=== PATIENT | female | born 2000 | race Caucasian/White ===

== ENCOUNTER 2021-11-13 07:46 | Emergency (ER) | payer MEDICAID, SELFPAY ==
[2021-11-13 07:49] VITALS: BP 133/69; PULSE 121; RESP 16; TEMP 37.1; O2SAT 99; BMI 19.5
[2021-11-13 07:52] VITALS: BP 133/69; PULSE 121; RESP 16; TEMP 37.1; O2SAT 99
[2021-11-13 08:21] LABS: Absolute Lymphocyte Count 2.66 X10^3/uL (0.83-4.51); Absolute Neutrophil Count 7.4 X10^3/uL (2.0-7.7); Basophil# 0.03 X10^3/uL; Basophil% 0.3 % (0-1); Eosinophil# 0.02 X10^3/uL; Eosinophils% 0.2 % (0-5); Hematocrit 28.1 % (37-47); Hemoglobin 7.9 g/dL (12.0-15.0); Lymphocyte # 2.66 X10^3/ul (0.83-4.51); Lymphocyte % 22.7 % (19-41); Mean Corp Hgb Conc 28.1 g/dL (32-36); Mean Corpuscular Hgb 20.3 pg (27.0-32.0); Mean Corpuscular Volume 72.1 fL (81-99); Mean Platelet Vol. 9.4 fl (6.2-12.0); Monocyte# 1.56 X10^3/uL; Monocyte% 13.3 % (0-10); NRBC Flagged by Analyzer 0 % (0-5); Neutrophil # 7.39 X10^3/uL (2.7-7.7); Neutrophil % 63.2 % (47-70); POSITIVE DIFFERENTIAL YES; Platelet Count 409 K/mm3 (150-450); RBC Distribution Width CV 16.2 % (11.6-14.6); RBC Distribution Width SD 40.9 fl (35.1-43.9); White Blood Count 11.7 K/mm3 (4.4-11.0)
--- NOTE | 2021-11-13 08:21 | EX.ED.DYSGE1 ---
HPI History of Present Illness Chief Complaint: Flank Pain Informant: patient Narrative Narrative: Patient presents with left flank soreness and a fever. Patient states she has been sore on the left flank for a few days. She works as an [employer] and thought she had just hurt herself. It is sore when she moves or twists. She denies any urinary symptoms at any time. She came in today because last night and then this morning she had a fever of about 102. She is not having coughing. No rashes. No nausea vomiting. She has some soft stools but does have ulcerative colitis. She is currently on Remicade. She had a flare of ulcerative colitis so she is on prednisone for about a week. She is on 25 a day she believes right now. But she states her symptoms of ulcerative colitis are improving. Her pain is in the left flank and radiates to the side. Its not in the anterior abdomen. She does not feel as though this is her ulcerative colitis. Tylenol made her temperature better. Motion or palpation of the back makes that worse. [facility] Medical History (Updated 11/13/21 @ 09:[address] Vik Friedman MD) Ulcerative colitis Home Medications cephalexin 500 mg capsule 500 mg PO Q6 #40 caps 11/13/21 [Rx Last Taken Unknown] ondansetron 4 mg disintegrating tablet 4 mg PO Q8H PRN nausea and vomiting #10 tabs 11/13/21 [Rx Last Taken Unknown] Allergy/AdvReac Type Severity Reaction Status Date / Time No Known Allergies Allergy Verified 11/13/21 07:52 Social History Smoking Status: Current every day smoker tobacco type: e-cigarettes ROS ROS ED Constitutional Constitutional ED: Reports fever(s) Eyes Eyes: Denies change in vision ENT ENT ED: Denies ear pain, rhinorrhea or sore throat Cardiovascular Cardiovascular: Denies chest pain, palpitations or paroxysmal nocturnal dyspnea Respiratory/Chest Respiratory/Chest: Denies cough, dyspnea, paroxysmal nocturnal dyspnea or sputum Gastrointestinal Gastrointestinal: Reports diarrhea and other Details: Mildly soft stool. Not having significant bloody diarrhea at this time though. ; Denies abdominal pain, constipation, melena, nausea or vomiting Genitourinary Genitourinary ED: Reports other Details: Last menstrual cycle was just over 2 weeks ago and normal timing. ; Denies urinary frequency Musculoskeletal Musculoskeletal: Reports back pain; Denies arthralgias, myalgias or neck pain Integumentary Denies abscess, Abrasions or rash Neurologic Neurologic: Denies paresthesias or weakness Endocrine Endocrinology: Denies polydipsia or polyuria Hematologic/Lymphatic Hematologic/Lymphatic: Denies easy bleeding or easy bruising Allergic/Immunologic Allergic/Immunologic ED: Denies urticaria EXAM Physical Exam Const Vital Signs: 11/13/21 07:49 11/13/21 07:52 11/13/21 08:58 Temperature 98.8 F 98.8 F 99.1 F Temperature Source Oral Oral Temporal Pulse Rate 121 H 121 H Respiratory Rate 16 16 Blood Pressure 133/69 H 133/69 H Blood Pressure Mean 90 Pulse Ox 99 99 Oxygen Delivery Method Room Air Room Air Positive well nourished and well developed General Appearance ED: well developed; Negative for pallor HEENT Reports moist mucous membranes Eyes PERRL and EOMs intact bilaterally General Eye ED: Negative for pale conjunctiva or scleral icterus Neck no lymphadenopathy and supple General: Negative for tenderness Chest Wall inspection of chest normal and palpation of chest normal Resp normal respiratory effort and clear to auscultation bilaterally Effort and Inspection: Negative for pain with movement Auscultation: Negative for rales, rhonchi, wheezes or diminished lung sounds Cardio regular rhythm; Negative for regular rate Rate: tachycardic GI normal to inspection, nondistended, normoactive bowel sounds, non-tender and non-distended GI Narrative: Anterior abdominal exam is quite benign. There is no rash. She is thin. There is no tenderness. No mass. No rebound or guarding. No suprapubic tenderness. Auscultation: normoactive bowel sounds Back/Spine Back/Spine Narrative: Patient has left-sided paraspinal tenderness. This is not just isolated to the CVA area. It is tender with motion twisting or even soft palpation. However, I do not get signs of percussion tenderness. She has no right-sided tenderness. I can tap on each of the spinous processes and this does not seem to bother her at all. It all seems to be paraspinal. Extremity normal to inspection General Extremety ED: Negative for edema or tenderness General Extremity: Negative for edema Neuro oriented x3 and no sensory deficits noted Neuro Narrative: Normal strength sensation of lower extremities. She has no pain going down her back buttock or legs. She has normal gait and balance. Sensorium / Orientation: alert Psych mental status grossly normal Skin no rashes or lesions noted Skin Narrative: No vesicles noted General Skin Exam: Negative for jaundice or pallor MDM MDM MDM Narrative Medical decision making narrative: Patient's blood work do show mild elevation of white count. This is consistent with infection but also consistent with being on prednisone currently. She is also quite anemic at 7.9. By looking at her indices, this is most likely longstanding iron deficient anemia. She is not having symptoms of anemia. Her heart rate is a bit quick here though. Electrolytes are unremarkable. is negative. Urine does show 25-50 whites with elevated leukocyte esterase and cloudy urine. There is a small number of squamous cell. There are 1+ bacteria. Considering she has this urinary finding fevers and left flank pain I would treat this as pyelonephritis. I have sent off a culture. Patient does have history of anemia. She has been having an off-and-on flare since July. They tapered her off of prednisone and then they bumped it up again. No gross blood in the stool but I am suspicious she has been having intermittent bleeding from her CBC findings. She states she cannot tolerate iron at all. She is not vegetarian. I have encouraged multivitamin with a small amount of iron. She can also increase red meats. She should have this hemoglobin level checked. If she develops any other areas of pain she should return. I do not think this represents a epidural abscess discitis etc. Her pain is clearly left-sided only. Lab Data Attestation: I reviewed the patient's lab results. Labs: Laboratory Results - last 24 hr 11/13/21 11/13/21 11/13/21 08:10 08:10 08:10 WBC 11.7 H RBC 3.90 L Hgb 7.9 L Hct 28.1 L MCV 72.1 L MCH 20.3 L MCHC 28.1 L RDW Std Deviation 40.9 RDW Coeff of [place]ito 16.2 H Plt Count 409 MPV 9.4 Immature Gran % (Auto) 0.300 Neut % (Auto) 63.2 Lymph % (Auto) 22.7 [place] % (Auto) 13.3 H Eos % (Auto) 0.2 Baso % (Auto) 0.3 Absolute Neuts (auto) 7.4 Absolute Lymphs (auto) 2.66 Nucleated RBC % 0 Differential Comment SCANNED Diff Path Review May foll Sodium 136 Potassium 3.5 Chloride 105 Carbon Dioxide 23.0 Anion Gap 8 BUN 9 Creatinine 0.93 Estim Creat Clear Calc 95.93 Est GFR (MDRD) Af Amer 97 Est GFR (MDRD) Non-Af 80 BUN/Creatinine Ratio 9.6 L Glucose 110 H Calcium 8.6 Serum , Qual NEGATIVE Urine Color Urine Clarity Urine pH Ur Specific [place] Urine Protein Urine Glucose (UA) Urine Ketones Urine Occult Blood Urine Nitrite Urine Bilirubin Urine Urobilinogen Ur Leukocyte Esterase Urine RBC Urine WBC Ur Squamous Epith Cells Urine Bacteria Urine Mucus 11/13/21 08:18 WBC RBC Hgb Hct MCV MCH MCHC RDW Std Deviation RDW Coeff of [place] Plt Count MPV Immature Gran % (Auto) Neut % (Auto) Lymph % (Auto) [place] % (Auto) Eos % (Auto) Baso % (Auto) Absolute Neuts (auto) Absolute Lymphs (auto) Nucleated RBC % Differential Comment Diff Path Review Sodium Potassium Chloride Carbon Dioxide Anion Gap BUN Creatinine Estim Creat Clear Calc Est GFR (MDRD) Af Amer Est GFR (MDRD) Non-Af BUN/Creatinine Ratio Glucose Calcium Serum , Qual Urine Color Yellow Urine Clarity Sl. Cloudy Urine pH 6.0 Ur Specific [place] 1.015 Urine Protein 30 H Urine Glucose (UA) Normal Urine Ketones Negative Urine Occult Blood 10 H Urine Nitrite Negative Urine Bilirubin Negative Urine Urobilinogen Normal Ur Leukocyte Esterase 500 H Urine RBC 0-5 SEEN Urine WBC 25-50 SEEN Ur Squamous Epith Cells 5-10 SEEN Urine Bacteria 1+ Urine Mucus 0 SEEN Discharge Plan Triage Chief Complaint: Flank Pain ED Provider: Vik Friedman Dx/Rx/DC Orders Clinical Impression: Pyelonephritis Instructions: ED Pyelonephritis, Female (Adult) Prescriptions: New cephalexin [cephalexin] 500 mg capsule 500 mg PO Q6 Qty: 40 0RF ondansetron 4 mg tablet,disintegrating 4 mg PO Q8H PRN (Reason: nausea and vomiting) Qty: 10 0RF Primary Care Provider: Care Physician,No Primary Referrals: Flores Hernandez MD [STAFF PHYSICIAN] - 3-5 Days Care Physician,No Primary [Primary Care Provider] - Activity Restrictions/Additional Instructions: See your vp construction about following blood counts. Disposition Disposition: Home, Self Care
[2021-11-13 08:23] LABS: Differential Indicated SCAN CRITERIA MET
[2021-11-13 08:27] LABS: Internal QC Validated? YES +Cl - CLEAR BKGD; Pregnancy, Serum, hCG Quali. NEGATIVE Negative
[2021-11-13 08:31] LABS: Mucous, Urine 0 SEEN /hpf (<or=2+)
[2021-11-13 08:32] LABS: Color, Urine Yellow (Yellow); Glucose, Dipstick Normal (Normal); Ketone-Dipstick Negative (Negative); Leukocyte Esterase-Dipstick 500 /ul (Negative); Nitrite-Dipstick Negative (Negative); Occult Blood-Urine 10 /ul (Negative); Protein-Dipstick 30 mg/dl (Negative); Specific Gravity, Urine 1.015 (1.002-1.030); Urine Bilirubin Dipstick Negative (Negative); Urine Clarity Sl. Cloudy (Clear); Urine Urobilinogen Normal (Normal)
[2021-11-13 08:33] LABS: Anion Gap 8 (5-15); BUN 9 mg/dL (7-18); BUN/Creat Ratio 9.6 RATIO (10-20); Calcium,Total 8.6 mg/dL (8.5-10.1); Chloride 105 mmol/L (98-107); Creatinine, Serum 0.93 mg/dL (0.55-1.02); EST Glomerular Filtration Rate 80 mL/min (>60); Est Glom Filt Rate - Afr Amer 97 mL/min (>60); Estimated Creatinine Clearance 95.93 ml/min; Glucose 110 mg/dL (74-106); Potassium 3.5 mmol/L (3.5-5.1); Sodium Level 136 mmol/L (136-145)
[2021-11-13] MEDS: 0.9% Normal Saline 1,000 ML 1000 ML IV (08:38)
[2021-11-13 08:39] LABS: Bacteria 1+ /hpf (None Seen); Red Blood Cells-Urine 0-5 SEEN /hpf (0-5); Squamous Epithelial Cells - UA 5-10 SEEN /hpf (5-10); White Blood Cells 25-50 SEEN /hpf (0-5)
[2021-11-13 08:42] LABS: Differential Comment SCANNED
[2021-11-13 08:58] VITALS: TEMP 37.3
[2021-11-13] MEDS: Ondansetron 4 MG/2 ML Vial IV (09:07)
[2021-11-13] MEDS: Morphine 4 MG/ML Syringe IV (09:07)
[2021-11-13] MEDS: Ceftriaxone 1 GM/50 ML BAG IV (10:08)
[2021-11-13 11:11] VITALS: BP 120/68; PULSE 70; RESP 16; O2SAT 99
[2021-11-16 11:57] LABS: Pathologist Review Reviewed
== END 2021-11-13 11:13 | disposition home or self-care (01) ==
PROVIDERS: Emergency Provider Emergency Medicine; Visit Provider Emergency Medicine
DX: N12 Tubulo-interstitial nephritis, not specified as acute or chronic (principal); K51.90 Ulcerative colitis, unspecified, without complications; F17.290 Nicotine dependence, other tobacco product, uncomplicated; Z79.899 Other long term (current) drug therapy
CPT/HCPCS: 80048; 81001; 84703; 85025; 87077; 87086; 87088; 87186; 87811; 96361; 96365; 96375; 99283; J7030; A4216; J2405

== ENCOUNTER 2022-05-20 09:55 | Emergency (ER) | payer MEDICAID, SELFPAY ==
[2022-05-20 09:55] VITALS: BP 151/79; PULSE 135; RESP 16; TEMP 36.6; O2SAT 98; BMI 20.9
--- NOTE | 2022-05-20 10:07 | EDS_ITS ---
HPI HPI - GI History of Present Illness Chief Complaint: Abd Pain Informant: patient Abdominal Pain/Flank Pain Onset: Weeks (1) Context: Gradual Onset Timing: Continuous and Waxes and wanes Quality: Burning and Stabbing Worsened by: - (Just prior to having a bowel movement) Relieved by: Nothing Nausea/Vomiting/Emesis GI Symptom: Positive for Nausea; Negative for Vomiting Diarrhea/Melena/Hematochezia GI Symptom: Positive for Hematochezia Stool Quality: Positive for BRB per rectum Associated Symptoms Associated Symptoms: Negative for Dysuria, Frequency, Hematuria or Urgency LMP: 2 months ago Narrative Narrative: Patient presents with abdominal pain that has been getting worse over the past week. Patient states she has a history of ulcerative colitis and states this feels similar to prior episodes. Patient states her pain is mainly over the upper abdomen. Patient states her pain is burning and stabbing. Patient states it is constant but waxes and wanes. Patient states it gets worse just prior to having a bowel movement. Patient admits to some nausea but denies any vomiting. Patient admits to some hematochezia. Patient states she is actually having more blood than stool. Patient denies any urinary complaints. Patient denies any abnormal vaginal bleeding or discharge. Patient states she did have a syncopal episode a couple days ago. Patient states that now whenever she stands up she gets lightheaded and her vision gets blurry. Prior similar symptoms: Yes PFSH PFSH Medical History Ulcerative colitis Home Medications cephalexin 500 mg capsule 500 mg PO Q6 #40 caps 11/13/21 [Rx Last Taken Unknown] ondansetron 4 mg disintegrating tablet 4 mg PO Q8H PRN nausea and vomiting #10 tabs 11/13/21 [Rx Last Taken Unknown] Allergy/AdvReac Type Severity Reaction Status Date / Time No Known Allergies Allergy Verified 05/20/22 09:58 Social History Smoking Status: Current every day smoker tobacco type: e-cigarettes ROS ROS ED Constitutional Constitutional ED: Denies chills or fever(s) Eyes Eyes: Denies blurry vision or change in vision ENT ENT ED: Denies rhinorrhea or sore throat Cardiovascular Cardiovascular: Denies chest pain or palpitations Respiratory/Chest Respiratory/Chest: Denies cough or dyspnea Gastrointestinal Gastrointestinal: Reports abdominal pain, melena and nausea; Denies vomiting Genitourinary Genitourinary ED: Denies dysuria or hematuria Musculoskeletal Musculoskeletal: Denies back pain or neck pain Integumentary Denies abscess or rash Neurologic Neurologic: Denies headache(s) or weakness Allergic/Immunologic Allergic/Immunologic ED: Denies mouth swelling or urticaria EXAM Physical Exam Const Vital Signs: 05/20/22 09:55 05/20/22 10:57 Temperature 97.9 F Temperature Source Temporal Pulse Rate 135 H Pulse Rate [Lying] 88 Pulse Rate [Sitting (for 1 minute prior to obtaining)] 100 Pulse Rate [Standing (for 1 minute prior to obtaining)] 111 H Respiratory Rate 16 Blood Pressure 151/79 H Blood Pressure [Lying] 103/64 Blood Pressure [Sitting (for 1 minute prior to obtaining)] 98/69 Blood Pressure [Standing (for 1 minute prior to obtaining)] 112/71 Blood Pressure Mean 103 Blood Pressure Mean [Lying] 77 Blood Pressure Mean [Sitting (for 1 minute prior to obtaining)] 78 Blood Pressure Mean [Standing (for 1 minute prior to obtaining)] 84 Pulse Ox 98 Oxygen Delivery Method Room Air Positive well nourished and well developed General Appearance ED: well developed and NAD HEENT Reports moist mucous membranes Neck supple and no JVD Resp normal respiratory effort and clear to auscultation bilaterally Cardio regular rate, regular rhythm and no murmurs GI normal to inspection, nondistended, normoactive bowel sounds Palpation: soft and tender epigastric, LUQ and RUQ; Negative for guarding or rebound tenderness present Extremity normal to inspection General Extremety ED: Negative for edema or tenderness General Extremity: Negative for edema Neuro oriented x3, CN's II-XII intact bilaterally and no sensory deficits noted Sensorium / Orientation: alert Motor Exam: strength 5/5 throughout Psych mental status grossly normal Skin no rashes or lesions noted MDM MDM MDM Narrative Medical decision making narrative: Differential diagnosis includes ulcerative colitis, Crohn's, irritable bowel syndrome, bowel obstruction, and urinary tract infection. Patient was given IV fluids. CBC will be obtained to assess for anemia and leukocytosis. Comprehensive metabolic profile will be obtained to check for electrolytes, renal function, and hepatic function. Urinalysis will be obtained to check for urinary tract infection or hematuria. I do not feel patient needs CT imaging at this time. Her symptoms are similar to prior flareups of her ulcerative colitis which is the most likely diagnosis. Lab Data Lab results narrative: CBC was reviewed. Hemoglobin was 9.8 and hematocrit 34.2. Prior outpatient labs were reviewed and this is actually increased from previous results. Platelets were slightly elevated at 485. Comprehensive metabolic profile was reviewed. This was essentially within normal limits. Alkaline phosphatase was slightly elevated at 124. Urinalysis was reviewed. There is a leukocyte esterases of 500 but there are 0-5 white blood cells. There are greater than 100 squamous epithelial cells. This is most likely contaminant. I do not feel this is from a urinary tract infection. There is no evidence of hematuria. Labs: Laboratory Results - last 24 hr 05/20/22 05/20/22 05/20/22 10:25 10:30 10:30 WBC 7.6 RBC 4.53 Hgb 9.8 L Hct 34.2 L MCV 75.5 L MCH 21.6 L MCHC 28.7 L RDW Std Deviation 43.5 RDW Coeff of [place]ito 16.1 H Plt Count 485 H MPV 9.9 Immature Gran % (Auto) 0.300 Neut % (Auto) 66.9 Lymph % (Auto) 22.2 [place] % (Auto) 7.9 Eos % (Auto) 2.2 Baso % (Auto) 0.5 Absolute Neuts (auto) 5.1 Absolute Lymphs (auto) 1.68 Nucleated RBC % 0 Sodium 141 Potassium 3.7 Chloride 110 H Carbon Dioxide 26.0 Anion Gap 5 BUN 6 L Creatinine 0.97 Estim Creat Clear Calc 98.54 Est GFR (MDRD) Af Amer 93 Est GFR (MDRD) Non-Af 77 BUN/Creatinine Ratio 6.2 L Glucose 99 Calcium 9.3 Total Bilirubin 0.20 AST 14 L ALT 15 Alkaline Phosphatase 124 H Total Protein 8.2 Albumin 4.0 Globulin 4.2 Albumin/Globulin Ratio 1.0 Urine Color Yellow Urine Clarity Sl. Cloudy Urine pH 6.0 Ur Specific [place] 1.020 Urine Protein 30 H Urine Glucose (UA) Normal Urine Ketones 5 H Urine Occult Blood 25 H Urine Nitrite Negative Urine Bilirubin Negative Urine Urobilinogen Normal Ur Leukocyte Esterase 500 H Urine RBC 0-5 SEEN Urine WBC 0-5 SEEN Ur Squamous Epith Cells > 100 SEEN Urine Bacteria 0 SEEN Urine Mucus 4+ Treatment and Re-Evaluation Narrative: Patient is feeling better on reevaluation. Patient was advised of her findings. Patient wants to go home. Patient was instructed to drink plenty of fluids. Patient was instructed to follow-up with her primary care physician and youth corrections officer in 3 to 5 days. Patient was instructed return if worse in any way. Patient understood and was agreeable with the plan. All questions were answered. Discharge Plan Triage Chief Complaint: Abd Pain ED Provider: Floyd Crandall Dx/Rx/DC Orders Clinical Impression: Ulcerative colitis, Abdominal pain Instructions: ED Ulcerative Colitis Prescriptions: No Action cephalexin [cephalexin] 500 mg capsule 500 mg PO Q6 Qty: 40 0RF ondansetron 4 mg tablet,disintegrating 4 mg PO Q8H PRN (Reason: nausea and vomiting) Qty: 10 0RF Primary Care Provider: Care Physician,No Primary Referrals: Chandler Arroyo MD [Non-Staff] - 3-5 Days Care Physician,No Primary [Primary Care Provider] - Activity Restrictions/Additional Instructions: Also follow-up with your youth corrections officer in 3 to 5 days. Disposition Disposition: Home, Self Care
[2022-05-20] MEDS: 0.9% Normal Saline 1,000 ML 1000 ML IV (10:31)
[2022-05-20] MEDS: Morphine 4 MG/ML Syringe IV (10:32)
[2022-05-20] MEDS: Dicyclomine 20 MG/2 ML Vial IM (10:33)
[2022-05-20] MEDS: Ondansetron 4 MG/2 ML Vial IV (10:43)
[2022-05-20 10:46] LABS: Bacteria 0 SEEN /hpf (None Seen)
[2022-05-20 10:48] LABS: Color, Urine Yellow (Yellow); Glucose, Dipstick Normal (Normal); Ketone-Dipstick 5 mg/dl (Negative); Leukocyte Esterase-Dipstick 500 /ul (Negative); Nitrite-Dipstick Negative (Negative); Occult Blood-Urine 25 /ul (Negative); Protein-Dipstick 30 mg/dl (Negative); Urine Bilirubin Dipstick Negative (Negative); Urine Clarity Sl. Cloudy (Clear); Urine Urobilinogen Normal (Normal)
[2022-05-20 10:48] LABS: Absolute Lymphocyte Count 1.68 X10^3/uL (0.83-4.51); Absolute Neutrophil Count 5.1 X10^3/uL (2.0-7.7); Basophil# 0.04 X10^3/uL; Basophil% 0.5 % (0-1); Eosinophil# 0.17 X10^3/uL; Eosinophils% 2.2 % (0-5); Hematocrit 34.2 % (37-47); Hemoglobin 9.8 g/dL (12.0-15.0); Lymphocyte # 1.68 X10^3/ul (0.83-4.51); Lymphocyte % 22.2 % (19-41); Mean Corp Hgb Conc 28.7 g/dL (32-36); Mean Corpuscular Hgb 21.6 pg (27.0-32.0); Mean Corpuscular Volume 75.5 fL (81-99); Mean Platelet Vol. 9.9 fl (6.2-12.0); Monocyte% 7.9 % (0-10); NRBC Flagged by Analyzer 0 % (0-5); Neutrophil # 5.06 X10^3/uL (2.7-7.7); Neutrophil % 66.9 % (47-70); Platelet Count 485 K/mm3 (150-450); RBC Distribution Width CV 16.1 % (11.6-14.6); RBC Distribution Width SD 43.5 fl (35.1-43.9); Red Blood Count 4.53 M/mm3 (4.2-5.4); White Blood Count 7.6 K/mm3 (4.4-11.0)
[2022-05-20 10:57] VITALS: BP 103/64; BP 112/71; BP 98/69; PULSE 100; PULSE 111; PULSE 88
[2022-05-20 11:00] LABS: Mucous, Urine 4+ /hpf (<or=2+); Red Blood Cells-Urine 0-5 SEEN /hpf (0-5); Squamous Epithelial Cells - UA > 100 SEEN /hpf (5-10); White Blood Cells 0-5 SEEN /hpf (0-5)
[2022-05-20 11:03] LABS: AST(SGOT) 14 U/L (15-37); Alanine Aminotransfer ALT/SGPT 15 U/L (13-56); Alkaline Phosphatase 124 U/L (45-117); Anion Gap 5 (5-15); BUN 6 mg/dL (7-18); BUN/Creat Ratio 6.2 RATIO (10-20); Calcium,Total 9.3 mg/dL (8.5-10.1); Chloride 110 mmol/L (98-107); Creatinine, Serum 0.97 mg/dL (0.55-1.02); EST Glomerular Filtration Rate 77 mL/min (>60); Est Glom Filt Rate - Afr Amer 93 mL/min (>60); Estimated Creatinine Clearance 98.54 ml/min; Globulin 4.2 g/dL (2.2-4.2); Glucose 99 mg/dL (74-106); Potassium 3.7 mmol/L (3.5-5.1); Protein, Total 8.2 g/dL (6.4-8.2); Sodium Level 141 mmol/L (136-145)
[2022-05-20 12:24] VITALS: BP 129/77; PULSE 62; RESP 15; O2SAT 98
== END 2022-05-20 12:24 | disposition home or self-care (01) ==
PROVIDERS: Emergency Provider Emergency Medicine; Visit Provider Emergency Medicine
DX: K51.90 Ulcerative colitis, unspecified, without complications (principal); R10.9 Unspecified abdominal pain; F17.290 Nicotine dependence, other tobacco product, uncomplicated
CPT/HCPCS: 80053; 81001; 85025; 96372; 96374; 96375; 99284; J7030; A4216; J2405

== ENCOUNTER 2022-05-22 09:43 | Emergency (ER) | payer MEDICAID, SELFPAY ==
[2022-05-22 09:44] VITALS: BP 114/61; PULSE 88; RESP 16; TEMP 37; O2SAT 99; BMI 20.2
--- NOTE | 2022-05-22 09:59 | EDS_ITS ---
HPI HPI - GI History of Present Illness Chief Complaint: Abd Pain Narrative Narrative: 21-year-old female with history of ulcerative colitis since she was 15 years old. She states that she has been in a flare for about 2 weeks. She states he is currently on her Rinvoq which does not appear to be helping. She was previously on Remicade which did not work either. She states he previously had a nurse practitioner she saw at [facility] that really helped her but since that particular nurse has been gone she has not felt her UC has been under control. Patient reports that the only thing that helps is steroids. She states that from November 2 March she was on steroids and this helped. She reports that she started on a prednisone extended taper starting at 40 mg daily in November and when she tapered down to 10 mg in March she started having worsening symp toms. This is when she started on her Rinvoq. Patient planing of suprapubic tenderness/pain. She is also complaining of lightheadedness. She does state that she has had some blood in her stool. She states the last time she had to be transfused was many years ago. [facility] Medical History Ulcerative colitis Home Medications prednisone 50 mg tablet 50 mg PO DAILY #5 tabs 05/22/22 [Rx Last Taken Unknown] upadacitinib 45 mg tablet,extended release 24 hr (Rinvoq) 45 mg PO DAILY 05/22/22 [History Last Taken Unknown] Allergy/AdvReac Type Severity Reaction Status Date / Time No Known Allergies Allergy Verified 05/22/22 09:44 Social History Smoking Status: Current every day smoker tobacco type: e-cigarettes ROS ROS ED ROS Narrative Lightheadedness Constitutional Constitutional ED: Denies chills, fever(s) or subjective ENT ENT ED: Denies rhinorrhea or sore throat Cardiovascular Cardiovascular: Denies chest pain or palpitations Respiratory/Chest Respiratory/Chest: Denies cough or dyspnea Gastrointestinal Gastrointestinal: Reports abdominal pain, nausea and other; Denies constipation Genitourinary Genitourinary ED: Reports urinary frequency Musculoskeletal Musculoskeletal: Denies arthralgias or back pain Integumentary Denies abscess Neurologic Neurologic: Denies headache(s) or paresthesias Psychiatric Psychiatric: Denies anxiety or depression EXAM Physical Exam Const Vital Signs: 05/22/22 09:44 05/22/22 10:43 05/22/22 11:44 Temperature 98.6 F Temperature Source Temporal Pulse Rate 88 67 Pulse Rate [Lying] 80 Pulse Rate [Sitting (for 1 minute prior to obtaining)] 83 Pulse Rate [Standing (for 1 minute prior to obtaining)] 89 Respiratory Rate 16 18 Blood Pressure 114/61 Blood Pressure [Lying] 97/59 L Blood Pressure [Sitting (for 1 minute prior to obtaining)] 100/61 Blood Pressure [Standing (for 1 minute prior to obtaining)] 121/67 H Blood Pressure Mean 78 Blood Pressure Mean [Lying] 71 Blood Pressure Mean [Sitting (for 1 minute prior to obtaining)] 74 Blood Pressure Mean [Standing (for 1 minute prior to obtaining)] 85 Pulse Ox 99 100 Oxygen Delivery Method Room Air Room Air 05/22/22 13:40 Temperature Temperature Source Pulse Rate 87 Pulse Rate [Lying] Pulse Rate [Sitting (for 1 minute prior to obtaining)] Pulse Rate [Standing (for 1 minute prior to obtaining)] Respiratory Rate 18 Blood Pressure Blood Pressure [Lying] Blood Pressure [Sitting (for 1 minute prior to obtaining)] Blood Pressure [Standing (for 1 minute prior to obtaining)] Blood Pressure Mean Blood Pressure Mean [Lying] Blood Pressure Mean [Sitting (for 1 minute prior to obtaining)] Blood Pressure Mean [Standing (for 1 minute prior to obtaining)] Pulse Ox 100 Oxygen Delivery Method Positive well nourished General Appearance ED: NAD and pallor HEENT Reports moist mucous membranes normocephalic and atraumatic Eyes PERRL General Eye ED: Negative for scleral icterus Neck no lymphadenopathy Resp normal respiratory effort and clear to auscultation bilaterally Cardio regular rate and regular rhythm GI GI Narrative: Mild suprapubic tenderness. Palpation: Negative for guarding or rigid Back/Spine no CVA tenderness Neuro CN's II-XII intact bilaterally Sensorium / Orientation: alert Motor Exam: strength 5/5 throughout Psych mental status grossly normal and thought process normal Skin General Skin Exam: pallor; Negative for jaundice MDM MDM MDM Narrative Medical decision making narrative: Patient with ulcerative colitis longstanding since she was 15. She reports that she was on steroids from November to March but started having worsening symptoms of UC. She was started on Rinvoq at that time and has been taking it without relief of her crampy pain. She does report bloody stools for the last 2 weeks. She is reporting that she is lightheaded. We will obtain a CBC to assess her hemoglobin hematocrit as well as her white blood cell count. CMP to assess liver function, renal function, electrolytes. Orthostatic vital signs to see if she is orthostatics with the lightheadedness. Patient maintains that she has no concern for . CBC shows no leukocytosis. Hemoglobin is slightly lower at 8.9. Platelets 476. Renal function is within normal limits. Liver function is also normal. Electrolytes normal exception of a potassium of 3.4. Urinalysis appears to be improving on Keflex. I did orthostatic vital signs which were negative. I did try to speak with her GI doctor (Dr. Amezcua) however I was only able to speak to the on-call physician. Reviewed the case with her and she recommended that the patient was not orthostatic to start her on prednisone. She is to follow-up with the office on Tuesday and call to make an appointment. Patient is amenable to this. She states this is what helped her last time. Return precautions are discussed. She was given referral to Dr. Bowers at her request. Patient discharged home in stable condition. Impression: 1. UC flare 2. Stable GI bleed 3. Anemia Lab Data Labs: Laboratory Results - last 24 hr 05/22/22 05/22/22 05/22/22 10:06 10:06 11:13 WBC 7.4 RBC 4.07 L Hgb 8.9 L Hct 31.5 L MCV 77.4 L MCH 21.9 L MCHC 28.3 L RDW Std Deviation 44.8 H RDW Coeff of Julito 15.9 H Plt Count 476 H MPV 9.4 Immature Gran % (Auto) 0.300 Neut % (Auto) 64.2 Lymph % (Auto) 23.9 [place] % (Auto) 7.5 Eos % (Auto) 3.6 Baso % (Auto) 0.5 Absolute Neuts (auto) 4.8 Absolute Lymphs (auto) 1.78 Nucleated RBC % 0 Sodium 142 Potassium 3.4 L Chloride 113 H Carbon Dioxide 25.0 Anion Gap 4 L BUN 6 L Creatinine 0.76 Estim Creat Clear Calc 121.58 Est GFR (MDRD) Af Amer 124 Est GFR (MDRD) Non-Af 102 BUN/Creatinine Ratio 7.9 L Glucose 100 Calcium 8.8 Total Bilirubin 0.30 AST 8 L ALT 12 L Alkaline Phosphatase 114 Total Protein 7.4 Albumin 3.5 Globulin 3.9 Albumin/Globulin Ratio 0.9 Lipase 75 Urine Color Yellow Urine Clarity Clear Urine pH 7.0 Ur Specific [place] 1.010 Urine Protein 15 H Urine Glucose (UA) Normal Urine Ketones Negative Urine Occult Blood Negative Urine Nitrite Positive H Urine Bilirubin Negative Urine Urobilinogen Normal Ur Leukocyte Esterase 500 H Urine RBC 0 SEEN Urine WBC 0-5 SEEN Ur Squamous Epith Cells 0-5 SEEN Urine Bacteria 0 SEEN Urine Mucus 0 SEEN Discharge Plan Triage Chief Complaint: Abd Pain ED Provider: Tommy Carrington Dx/Rx/DC Orders Clinical Impression: Ulcerative colitis Instructions: ED Anemia, Type Not Specified (Adult), ED Lower GI Bleeding (St able), ED Ulcerative Colitis Prescriptions: New prednisone 50 mg tablet 50 mg PO DAILY Qty: 5 0RF No Action Rinvoq 45 mg Tablet Extended Release 24 Hr 45 mg PO DAILY Primary Care Provider: Care Physician,No Primary Referrals: Alex Bowers, DO [Med Staff - Active Staff] - As soon as possible Care Physician,No Primary [Primary Care Provider] - Disposition Disposition: Home, Self Care
[2022-05-22 10:16] LABS: Absolute Lymphocyte Count 1.78 X10^3/uL (0.83-4.51); Absolute Neutrophil Count 4.8 X10^3/uL (2.0-7.7); Basophil# 0.04 X10^3/uL; Basophil% 0.5 % (0-1); Eosinophil# 0.27 X10^3/uL; Eosinophils% 3.6 % (0-5); Hematocrit 31.5 % (37-47); Hemoglobin 8.9 g/dL (12.0-15.0); Lymphocyte # 1.78 X10^3/ul (0.83-4.51); Lymphocyte % 23.9 % (19-41); Mean Corp Hgb Conc 28.3 g/dL (32-36); Mean Corpuscular Hgb 21.9 pg (27.0-32.0); Mean Corpuscular Volume 77.4 fL (81-99); Mean Platelet Vol. 9.4 fl (6.2-12.0); Monocyte# 0.56 X10^3/uL; Monocyte% 7.5 % (0-10); NRBC Flagged by Analyzer 0 % (0-5); Neutrophil # 4.77 X10^3/uL (2.7-7.7); Neutrophil % 64.2 % (47-70); Platelet Count 476 K/mm3 (150-450); RBC Distribution Width CV 15.9 % (11.6-14.6); RBC Distribution Width SD 44.8 fl (35.1-43.9); Red Blood Count 4.07 M/mm3 (4.2-5.4); White Blood Count 7.4 K/mm3 (4.4-11.0)
[2022-05-22 10:28] LABS: ALB/GLOB Ratio 0.9 RATIO (0.9-2.4); AST(SGOT) 8 U/L (15-37); Alanine Aminotransfer ALT/SGPT 12 U/L (13-56); Albumin, Serum 3.5 g/dL (3.2-5.0); Alkaline Phosphatase 114 U/L (45-117); Anion Gap 4 (5-15); BUN 6 mg/dL (7-18); BUN/Creat Ratio 7.9 RATIO (10-20); Calcium,Total 8.8 mg/dL (8.5-10.1); Chloride 113 mmol/L (98-107); Creatinine, Serum 0.76 mg/dL (0.55-1.02); EST Glomerular Filtration Rate 102 mL/min (>60); Est Glom Filt Rate - Afr Amer 124 mL/min (>60); Estimated Creatinine Clearance 121.58 ml/min; Globulin 3.9 g/dL (2.2-4.2); Glucose 100 mg/dL (74-106); Lipase 75 U/L (73-393); Potassium 3.4 mmol/L (3.5-5.1); Protein, Total 7.4 g/dL (6.4-8.2); Sodium Level 142 mmol/L (136-145)
[2022-05-22 10:43] VITALS: BP 100/61; BP 121/67; BP 97/59; PULSE 80; PULSE 83; PULSE 89
[2022-05-22 11:18] LABS: Bacteria 0 SEEN /hpf (None Seen); Mucous, Urine 0 SEEN /hpf (<or=2+); Red Blood Cells-Urine 0 SEEN /hpf (0-5)
[2022-05-22 11:19] LABS: Color, Urine Yellow (Yellow); Glucose, Dipstick Normal (Normal); Ketone-Dipstick Negative (Negative); Leukocyte Esterase-Dipstick 500 /ul (Negative); Nitrite-Dipstick Positive (Negative); Occult Blood-Urine Negative /ul (Negative); Protein-Dipstick 15 mg/dl (Negative); Urine Bilirubin Dipstick Negative (Negative); Urine Clarity Clear (Clear); Urine Urobilinogen Normal (Normal)
[2022-05-22 11:34] LABS: Squamous Epithelial Cells - UA 0-5 SEEN /hpf (5-10); White Blood Cells 0-5 SEEN /hpf (0-5)
[2022-05-22 11:44] VITALS: PULSE 67; RESP 18; O2SAT 100
[2022-05-22 13:40] VITALS: PULSE 87; RESP 18; O2SAT 100
[2022-05-22] MEDS: MethylPREDNISolone 125 MG/2 ML Vial IV (13:47)
== END 2022-05-22 13:51 | disposition home or self-care (01) ==
PROVIDERS: Emergency Provider Student in an Organized Health Care Education/Training Program; Visit Provider Student in an Organized Health Care Education/Training Program
DX: K51.911 Ulcerative colitis, unspecified with rectal bleeding (principal); D64.9 Anemia, unspecified; F17.290 Nicotine dependence, other tobacco product, uncomplicated; Z79.899 Other long term (current) drug therapy
CPT/HCPCS: 80053; 81001; 83690; 85025; 96374; 99284; A4216

== ENCOUNTER 2022-08-27 21:29 | Emergency (ER) | payer MEDICAID, SELFPAY ==
[2022-08-27 21:30] VITALS: BP 123/57; PULSE 101; RESP 18; TEMP 36.5; O2SAT 99; BMI 20.7
[2022-08-27 22:15] LABS: Absolute Lymphocyte Count 2.84 X10^3/uL (0.83-4.51); Absolute Neutrophil Count 2.3 X10^3/uL (2.0-7.7); Basophil# 0.06 X10^3/uL; Eosinophil# 0.18 X10^3/uL; Eosinophils% 3.1 % (0-5); Hematocrit 28.9 % (37-47); Hemoglobin 8.1 g/dL (12.0-15.0); Lymphocyte # 2.84 X10^3/ul (0.83-4.51); Lymphocyte % 48.1 % (19-41); Mean Corpuscular Hgb 20.5 pg (27.0-32.0); Mean Platelet Vol. 9.8 fl (6.2-12.0); Monocyte# 0.53 X10^3/uL; NRBC Flagged by Analyzer 0 % (0-5); Neutrophil # 2.28 X10^3/uL (2.7-7.7); Neutrophil % 38.6 % (47-70); Platelet Count 430 K/mm3 (150-450); RBC Distribution Width CV 15.9 % (11.6-14.6); RBC Distribution Width SD 41.3 fl (35.1-43.9); Red Blood Count 3.96 M/mm3 (4.2-5.4); White Blood Count 5.9 K/mm3 (4.4-11.0)
[2022-08-27 22:29] LABS: Internal QC Validated? YES +Cl - CLEAR BKGD; Pregnancy, Serum, hCG Quali. NEGATIVE Negative
--- NOTE | 2022-08-27 22:36 | ED.VIS.GI ---
HPI HPI - GI History of Present Illness Chief Complaint: Abd Pain Narrative Narrative: 21-year-old female with history of UC presenting with acute onset abdominal pain which she described as just suprapubic. It radiates posteriorly towards her buttocks. She states he urinated about 45 minutes ago and did not have any dysuria or hematuria. She denies nausea or vomiting. No constipation or diarrhea. No black or bloody stools. No fevers or chills. Patient states she may be as she is trying to get . She checked a test earlier which showed a positive faintly and then disappeared. PFSH PFS Medical History Ulcerative colitis Home Medications prednisone 50 mg tablet 50 mg PO DAILY #5 tabs 05/22/22 [Rx Last Taken Unknown] upadacitinib 45 mg tablet,extended release 24 hr (Rinvoq) 45 mg PO DAILY 05/22/22 [History Last Taken Unknown] Allergy/AdvReac Type Severity Reaction Status Date / Time No Known Allergies Allergy Verified 08/27/22 21:31 Social History Smoking Status: Current every day smoker tobacco type: e-cigarettes ROS ROS ED Review of Systems ROS Unobtainable: Denies due to encephalopathy Constitutional Constitutional ED: Denies chills or fever(s) ENT ENT ED: Denies rhinorrhea or sore throat Cardiovascular Cardiovascular: Denies chest pain or palpitations Respiratory/Chest Respiratory/Chest: Denies cough or dyspnea Gastrointestinal Gastrointestinal: Reports abdominal pain; Denies constipation Genitourinary Genitourinary ED: Reports dysuria; Denies hematuria Musculoskeletal Musculoskeletal: Reports back pain; Denies arthralgias Integumentary Denies abscess Neurologic Neurologic: Denies headache(s) or paresthesias Psychiatric Psychiatric: Denies anxiety or depression EXAM Physical Exam Const Vital Signs: 08/27/22 21:30 Temperature 97.7 F L Temperature Source Temporal Pulse Rate 101 H Respiratory Rate 18 Blood Pressure 123/57 H Blood Pressure Mean 79 Pulse Ox 99 Oxygen Delivery Method Room Air Positive well nourished General Appearance ED: NAD; Negative for pallor HEENT Reports moist mucous membranes Eyes PERRL and EOMs intact bilaterally General Eye ED: Negative for pale conjunctiva or scleral icterus Resp normal respiratory effort Effort and Inspection: Negative for respiratory distress Cardio regular rate Rate: tachycardic GI Palpation: tender suprapubic Neuro CN's II-XII intact bilaterally Sensorium / Orientation: alert Motor Exam: strength 5/5 throughout Psych mental status grossly normal Skin no wounds General Skin Exam: Negative for jaundice or pallor MDM MDM MDM Narrative Medical decision making narrative: Patient with acute onset abdominal pain. Differential includes UTI, pyelonephritis, ectopic , kidney stone, UC flare, constipation, diverticulitis. CBC to assess white blood cell count, hemoglobin, platelets, differential. Serum hCG to assess for . Urinalysis to assess for UTI. CBC does not show a significant leukocytosis. White blood cell count 5.9. Hemoglobin 8.1 which is near baseline. Platelets within normal limits. Patient denies any black or bloody stools. Serum hCG negative. Patient was given Toradol and a liter of normal saline as she is having trouble urinating. On reevaluation patient is feeling improved. Her urinalysis was negative. hCG negative. She was able to get up and ambulate around the room without pain. I feel at this point patient is stable to be discharged home. Return precautions were discussed. I do not believe she needs any imaging studies. Lab Data Attestation: I reviewed the patient's lab results. Labs: Laboratory Results - last 24 hr 08/27/22 08/27/22 22:00 22:00 WBC 5.9 RBC 3.96 L Hgb 8.1 L Hct 28.9 L MCV 73.0 L MCH 20.5 L MCHC 28.0 L RDW Std Deviation 41.3 RDW Coeff of Julito 15.9 H Plt Count 430 MPV 9.8 Immature Gran % (Auto) 0.200 Neut % (Auto) 38.6 L Lymph % (Auto) 48.1 H [place] % (Auto) 9.0 Eos % (Auto) 3.1 Baso % (Auto) 1.0 Absolute Neuts (auto) 2.3 Absolute Lymphs (auto) 2.84 Nucleated RBC % 0 Serum , Qual NEGATIVE Discharge Plan Triage Chief Complaint: Abd Pain ED Provider: Tommy Carrington Dx/Rx/DC Orders Instructions: ED Abdominal Pain Unkn Cause Fem Prescriptions: No Action Rinvoq 45 mg Tablet Extended Release 24 Hr 45 mg PO DAILY prednisone 50 mg tablet 50 mg PO DAILY Qty: 5 0RF Primary Care Provider: Care Physician,No Primary Referrals: Care Physician,No Primary [Primary Care Provider] - Disposition Disposition: Home, Self Care Discharge Date/Time: 08/28/22 00:20
[2022-08-27 22:38] LABS: AST(SGOT) 14 U/L (15-37); Alanine Aminotransfer ALT/SGPT 21 U/L (13-56); Albumin, Serum 3.8 g/dL (3.2-5.0); Alkaline Phosphatase 129 U/L (45-117); Anion Gap 3 (5-15); BUN 9 mg/dL (7-18); BUN/Creat Ratio 11.7 RATIO (10-20); Calcium,Total 9.1 mg/dL (8.5-10.1); Chloride 112 mmol/L (98-107); Creatinine, Serum 0.77 mg/dL (0.55-1.02); EST Glomerular Filtration Rate 100 mL/min (>60); Est Glom Filt Rate - Afr Amer 121 mL/min (>60); Estimated Creatinine Clearance 122.81 ml/min; Globulin 3.8 g/dL (2.2-4.2); Glucose 113 mg/dL (74-106); Lipase 55 U/L (13-75); Potassium 3.4 mmol/L (3.5-5.1); Protein, Total 7.6 g/dL (6.4-8.2); Sodium Level 139 mmol/L (136-145)
[2022-08-27] MEDS: 0.9% Normal Saline 1,000 ML 999 ML IV (23:22)
[2022-08-27] MEDS: Ketorolac 15 MG/ML Vial IV (23:22)
[2022-08-27 23:26] VITALS: BP 122/78; PULSE 79; RESP 16; O2SAT 100
[2022-08-27 23:55] LABS: Color, Urine Yellow (Yellow); Glucose, Dipstick Normal (Normal); Ketone-Dipstick Negative (Negative); Leukocyte Esterase-Dipstick 25 /ul (Negative); Nitrite-Dipstick Negative (Negative); Occult Blood-Urine Negative /ul (Negative); Protein-Dipstick 15 mg/dl (Negative); Specific Gravity, Urine 1.015 (1.002-1.030); Urine Bilirubin Dipstick Negative (Negative); Urine Clarity Clear (Clear); Urine Urobilinogen 1 mg/dl (Normal)
[2022-08-28 00:14] VITALS: BP 122/74; PULSE 85; RESP 16; TEMP 36.9; O2SAT 100
[2022-08-28 00:23] LABS: Bacteria 1+ /hpf (None Seen); Mucous, Urine 1+ /hpf (<or=2+); Red Blood Cells-Urine 0-5 SEEN /hpf (0-5); Squamous Epithelial Cells - UA 0-5 SEEN /hpf (5-10); White Blood Cells 0-5 SEEN /hpf (0-5)
== END 2022-08-28 00:20 | disposition home or self-care (01) ==
PROVIDERS: Emergency Provider Student in an Organized Health Care Education/Training Program; Visit Provider Student in an Organized Health Care Education/Training Program
DX: R10.9 Unspecified abdominal pain (principal); F17.290 Nicotine dependence, other tobacco product, uncomplicated
CPT/HCPCS: 80053; 81001; 83690; 84703; 85025; 96374; 99283; J7030; A4216

== ENCOUNTER 2023-04-27 18:12 | Emergency (ER) | payer MEDICAID, SELFPAY ==
[2023-04-27 18:13] VITALS: BP 111/71; PULSE 147; RESP 22; TEMP 36.9; O2SAT 95; BMI 22.8
== END 2023-04-27 19:10 | disposition left against medical advice (07) ==
LOC: ED 19:24
DX: Z00.00 Encounter for general adult medical examination without abnormal findings (principal)

== ENCOUNTER 2023-04-29 16:04 | Outpatient (CLI) | payer MEDICAID, SELFPAY ==
[2023-04-29] VITALS (13 sets, daily range): BP systolic 110–120; BP diastolic 60–64; PULSE 84–122; TEMP 37–38.3; O2SAT 88–100; BMI 22.0
[2023-04-29 16:45] LABS: Color, Urine Yellow (Yellow); Glucose, Dipstick Normal (Normal); Leukocyte Esterase-Dipstick 500 /ul (Negative); Nitrite-Dipstick Negative (Negative); Occult Blood-Urine 50 /ul (Negative); Protein-Dipstick 500 mg/dl (Negative); Specific Gravity, Urine 1.015 (1.002-1.030); Urine Bilirubin Dipstick Negative (Negative); Urine Clarity Cloudy (Clear); Urine Urobilinogen Normal (Normal)
[2023-04-29 16:49] LABS: Ketone-Dipstick 150 mg/dl (Negative)
--- NOTE | 2023-04-29 17:09 | US_ITS ---
INDICATION: CVAT tenderness EXAMINATION: Ultrasound US Kidney(s) complete (eg, kidneys and bladder) TECHNIQUE: Myaen scale and color doppler images were obtained of the kidneys. COMPARISON: None. FINDINGS: RIGHT KIDNEY: Measures 11.8 cm in length.. There is mild hydronephrosis. No shadowing calculus, focal lesion or perinephric collection is demonstrated. LEFT KIDNEY: Measures 10 cm in length.. There is no hydronephrosis. No shadowing calculus, focal lesion or perinephric collection is demonstrated. URINARY BLADDER: No acute abnormality. US/Kidney and Bladder IMPRESSION: Mild right hydronephrosis. No obstructing stone mor mass seen. Electronically Signed: Orion Bain MD at 19:49 EST ,
--- NOTE | 2023-04-29 17:21 | OB.TRI.PN_ITS ---
Progress Notes Progress Note: presenting at 26w6d by LMP. Presents with history of influenza over a week ago. today started with RLQ abdominal pain that wraps around back with pain in flank area, rating pain 7/10. Denies nausea, vomiting, diarrhea, or constipation. No abdominal pain or contractions. No vaginal bleeding or leakage of fluid. History of ulcerative colitis but has been stable throughout the . Laboratory Studies: Laboratory Tests 04/29/23 Range/Units 16:20 Urine Color Yellow (Yellow) Urine Clarity Cloudy (Clear) Urine pH 6.0 (5.0 - 8.0) Ur Specific [place] 1.015 (1.002-1.030) Urine Protein 500 H (Negative) mg/dl Urine Glucose (UA) Normal (Normal) mg/dl Urine Ketones 150 A* (Negative) mg/dl Urine Occult Blood 50 H (Negative) /ul Urine Nitrite Negative (Negative) Urine Bilirubin Negative (Negative) mg/dL Urine Urobilinogen Normal (Normal) mg/dl Ur Leukocyte Esterase 500 H (Negative) /ul NST 155, moderate variability, accels. No contractions Cervix 0.5cm, thick, midline Assessment & Plan (1) 26 weeks gestation of : PLAN: Plan 1) FFN completed, no signs of PTL 2) CMP, CBC, amylase, lipase 3) US kidney 4) To ED for further workup and acute abdomen 50 Dr.James chamorro physician and notified of patient status above. Reviewed cervical exam less than 1cm and midline, no uterine contractions, vaginal bleeding. Recommend ED for evaluation and no transport at this time.
[2023-04-29 17:55] LABS: Absolute Lymphocyte Count 1.28 X10^3/uL (0.83-4.51); Absolute Neutrophil Count 7.9 X10^3/uL (2.0-7.7); Basophil# 0.02 X10^3/uL; Basophil% 0.2 % (0-1); Eosinophil# 0.02 X10^3/uL; Eosinophils% 0.2 % (0-5); Hematocrit 35.5 % (37-47); Hemoglobin 11.5 g/dL (12.0-15.0); Lymphocyte # 1.28 X10^3/ul (0.83-4.51); Lymphocyte % 12.7 % (19-41); Mean Corp Hgb Conc 32.4 g/dL (32-36); Mean Corpuscular Hgb 29.1 pg (27.0-32.0); Mean Corpuscular Volume 89.9 fL (81-99); Mean Platelet Vol. 9.7 fl (6.2-12.0); Monocyte# 0.86 X10^3/uL; Monocyte% 8.5 % (0-10); NRBC Flagged by Analyzer 0 % (0-5); Neutrophil # 7.86 X10^3/uL (2.7-7.7); Neutrophil % 77.7 % (47-70); Platelet Count 302 K/mm3 (150-450); RBC Distribution Width CV 15.9 % (11.6-14.6); RBC Distribution Width SD 52.5 fl (35.1-43.9); Red Blood Count 3.95 M/mm3 (4.2-5.4); White Blood Count 10.1 K/mm3 (4.4-11.0)
[2023-04-29 18:19] LABS: ALB/GLOB Ratio 0.5 RATIO (0.9-2.4); AST(SGOT) 21 U/L (15-37); Alanine Aminotransfer ALT/SGPT 12 U/L (13-56); Albumin, Serum 2.6 g/dL (3.2-5.0); Alkaline Phosphatase 147 U/L (45-117); Amylase 22 U/L (25-115); Anion Gap 13 (5-15); BUN 6 mg/dL (7-18); BUN/Creat Ratio 9.2 RATIO (10-20); Calcium,Total 8.7 mg/dL (8.5-10.1); Chloride 106 mmol/L (98-107); Creatinine, Serum 0.65 mg/dL (0.55-1.02); EST Glomerular Filtration Rate 120 mL/min (>60); Est Glom Filt Rate - Afr Amer 145 mL/min (>60); Estimated Creatinine Clearance 151.74 ml/min; Globulin 4.9 g/dL (2.2-4.2); Glucose 91 mg/dL (74-106); Lipase 18 U/L (13-75); Potassium 3.2 mmol/L (3.5-5.1); Protein, Total 7.5 g/dL (6.4-8.2); Sodium Level 135 mmol/L (136-145)
[2023-04-29 19:03] LABS: Fetal Fibronectin Negative; Record Kit Lot#, fFN E3050
[2023-04-29 20:36] LABS: Mucous, Urine 0 SEEN /hpf (<or=2+); Red Blood Cells-Urine 0 SEEN /hpf (0-5)
[2023-04-29 20:44] LABS: White Blood Cells >100 SEEN /hpf (0-5)
[2023-04-29 20:45] LABS: Squamous Epithelial Cells - UA 10-25 SEEN /hpf (5-10)
[2023-04-29 20:46] LABS: Bacteria RARE /hpf (None Seen)
[2023-04-29] MEDS: Cephalexin 250 MG Capsule 500 MG PO (23:43)
== END 2023-04-29 23:45 | disposition home or self-care (01) ==
LOC: WPOUT 16:11 → WP 18:02
PROVIDERS: Referring Provider Advanced Practice Midwife; Visit Provider Advanced Practice Midwife
DX: O99.891 Other specified diseases and conditions complicating pregnancy (principal); R10.31 Right lower quadrant pain; Z3A.26 26 weeks gestation of pregnancy; M54.9 Dorsalgia, unspecified; O26.892 Other specified pregnancy related conditions, second trimester; Z87.891 Personal history of nicotine dependence; R82.71 Bacteriuria; N13.30 Unspecified hydronephrosis; O26.832 Pregnancy related renal disease, second trimester
CPT/HCPCS: 81002; 36415; 59025; 59050; 74177; 76770; 80053; 81001; 82150; 82731; 83690; 85025; 87086; 87088; 87186; 99221; 99282; J7030; Q9967; A4216; G0378; J2405

== ENCOUNTER 2023-04-29 18:02 | Emergency (ER) | payer MEDICAID, SELFPAY ==
[2023-04-29 18:04] VITALS: BP 127/64; PULSE 115; RESP 16; TEMP 37.3; O2SAT 98
[2023-04-29 18:08] VITALS: PULSE 111; RESP 20; TEMP 37.3; O2SAT 99; BMI 21.9
--- NOTE | 2023-04-29 18:11 | NURSING ---
Pt escorted from [facility]. FHR was obtained over on that unit.
[2023-04-29] MEDS: Acetaminophen 325 MG Tablet 650 MG PO (18:34)
[2023-04-29] MEDS: Ondansetron 4 MG/2 ML Vial IV (18:34)
[2023-04-29] MEDS: 0.9% Normal Saline (1000mL) 1,000 ML 1000 ML IV (18:40)
--- NOTE | 2023-04-29 19:03 | EX.ED.DYSGE1 ---
HPI History of Present Illness Chief Complaint: Abd Pain [facility] Medical History Ulcerative colitis Home Medications vit no.95-ferrous fumarate 28 mg-folic acid 800 mcg tablet () 1 tab PO DAILY 04/29/23 [History Last Taken Unknown] Allergy/AdvReac Type Severity Reaction Status Date / Time No Known Allergies Allergy Verified 04/29/23 16:44 Social History Smoking Status: Former smoker EXAM Physical Exam Const Vital Signs: 04/29/23 18:04 04/29/23 18:08 04/29/23 20:39 Temperature 99.1 F 99.1 F 98.4 F Temperature Source Oral Oral Oral Pulse Rate 115 H 111 H 94 Respiratory Rate 16 20 H 16 Blood Pressure 127/64 H Blood Pressure Mean 85 Pulse Ox 98 99 94 Oxygen Delivery Method Room Air Room Air Room Air MDM MDM MDM Narrative Medical decision making narrative: HISTORY OF PRESENT ILLNESS: 22-year-old female presents with right flank pain. She had diagnosed with COVID approximate 2 weeks ago. States she had no trauma. Patient denies any saddle anesthesia, urinary retention, bowel or bladder incontinence, lower extremity weakness, fever or IV drug use, no recent spinal manipulation or surgery, no recent urinary catheterization. Notes history of kidney infection but denies use of kidney stones. Denies history abdominal surgery. REVIEW OF SYSTEMS: Pertinent positives: Right flank pain, back pain Pertinent negatives:, Vaginal bleeding, passage of tissue nausea, vomiting, fever, chest pain, shortness of breath PHYSICAL EXAM: Nursing triage notes reviewed, Vital signs reviewed Constitutional: please see mdm HENT: MMM Eyes: Pupils equal round and reactive to light, Extraocular muscles intact Neck: No stridor, no JVD, full neck ROM Lungs: Clear to auscultation, No wheezing or rales. No increased work of breathing, no conversational dyspnea, no accessory muscle use, no nasal flaring. No respiratory distress noted Heart: Regular rate and rhythm, No murmurs, No rubs and No gallops, 2+ distal pulses (radial, femoral, posterior tibial) in all extremities Abdomen: Soft, there is no tenderness, gravid uterus rigidity, rebound or guarding, no obvious peritoneal signs, no palpable pulsatile abdominal masses, no auscultated abdominal bruit Back: TTP over right lower lumbar region, TTP over right SI joint : No CVAT Extremities: No edema Neuro: No focal neurological deficits, cranial nerves II through XII intact, 5/5 strength in all extremities. Intact sensation to light touch in all extremities, 2+ reflexes bilateral patella tendons. Normal gait. No ataxia. Skin: No rash or lesions noted MEDICAL DECISION MAKING: Chief Complaint: Back/flank pain External records reviewed: Renal ultrasound read and reviewed personally myself evidence of hydronephrosis concerning for nephrolithiasis Factors affecting care: Currently Social determinants of health: none History obtained from others: none Consults: none [facility] Narrative: Patient was initially tachycardic, was uncomfortable secondary to pain nonfocal lower extremity neuroexam. No vaginal bleeding present tissue she is undergoing monitoring. I considered the following differential diagnosis: Appendicitis, lumbosacral back pain, pain associated , nephrolithiasis ALL IMAGES (IF OBTAINED) HAVE BEEN PERSONALLY REVIEWED AND INTERPRETED BY MYSELF. UA shows evidence of urinary inflammation, occult blood this could be consistent with a kidney stone versus asymptomatic bacteriuria CBC with no leukocytosis, mild anemia, no thrombocytopenia BMP with mild hyponatremia, hypokalemia, no MIKO no evidence of hepatobiliary obstruction The patient's ultrasound revealed hydronephrosis making nephrolithiasis more concerning specifically concerning for large nephrolithiasis that would require urgent surgical intervention. In addition to this were also concerned about acute appendicitis. I discussed risk and benefits of CT induced malignancy in the patient as well as her unborn child. Mother expressed understanding of the risk and benefits specifically of the child's elevated risk of development of various malignancies at a later time. Mother was alert and oriented x 3 and had capacity to make medical decisions for her unborn child and chose to undergo imaging to further evaluate her condition. CT Scan showed evidence of nephrolithiasis or acute appendicitis. Patient's ED course she developed more regular contractions along with lower abdominal pain and pressure concerning for labor. OB nurse, METALWORKING INSTRUCTOR (Ms. Serna Nurse die drawing checker) accepted the patient's case. She was written a dose of Keflex prior to going to the OB to start treatment for asymptomatic bacteriuria. The patient and/or family, caregivers express understanding. The patient and/or family, caregivers agrees with the plan. Shared decision making: I will have a discussion with the patient and or visitors regarding risk/benefits of further testing or admission. They will be made aware of of the risk/benefits inherent in this decision they will be given the opportunity to voice understanding. Total critical care time today provided was at least 0 minutes. This excludes separately billable procedures. Critical care time (if documented) is secondary to the patient having high probability of clinically significant/life threatening deterioration in the patient's condition which required my urgent intervention. Impression: 1. Flank pain 2. Second trimester 3. Back pain 4. Asymptomatic bacteriuria 5. Hydronephrosis Dispo: Discharge to OB triage for further monitoring. Radiography Diagnostic Testing: Clinical Impression(s) from Imaging Studies Abdomen/Pelvis CT 04/29/23 20:03 IMPRESSION: Mildly dilated appendix with no significant surrounding inflammatory changes. These findings are equivocal for acute nonruptured appendicitis. Moderate right hydroureteronephrosis likely due to extrinsic compression by uterus. Electronically Signed: Orion Bain MD at 21:20 EST , Discharge Plan Triage Chief Complaint: Abd Pain ED Provider: Gio Noble Dx/Rx/DC Orders Instructions: ED Cystitis Female Adult Prescriptions: No Action PNV cmb#95-ferrous fumarate-FA [] 28 mg iron- 800 mcg tablet 1 tab PO DAILY Primary Care Provider: Care Physician,No Primary Referrals: Care Physician,No Primary [Primary Care Provider] - Activity Restrictions/Additional Instructions: Go Directly to OB triage Disposition Disposition: DC/Tx to Another Type of HCF
[2023-04-29] MEDS: Lidocaine 5% Patch 1 PATCH TOPICAL (19:10)
--- NOTE | 2023-04-29 20:03 | CT_ITS ---
INDICATION: right flank/RLQ abdominal pain r/o appendicits EXAMINATION: CT Abdomen And Pelvis W/ Contrast Injection TECHNIQUE: Helically acquired images were obtained of the abdomen and pelvis after IV contrast. A radiation dose optimization technique was used for this scan. IV Contrast dosage and agent: IV 75mL Isovue-300 Oral contrast: None. COMPARISON: None. FINDINGS: Visualized lung bases: Unremarkable Liver: Unremarkable Gallbladder: Unremarkable Spleen: Unremarkable Pancreas: Unremarkable Adrenal Glands: Unremarkable Kidneys: Moderate right hydroureteronephrosis. Vasculature: Unremarkable GI Tract: The appendix is mildly dilated measuring up to 8 mm in diameter and has a mildly thickened wall. No significant surrounding inflammatory changes. Lymphadenopathy: None Peritoneum: No ascites. Bladder: Unremarkable Reproductive organs: Intrauterine seen. Bones/Soft tissues: No suspicious osseous or soft tissue lesions CT/Abdomen/Pelvis W IV Cont ONLY IMPRESSION: Mildly dilated appendix with no significant surrounding inflammatory changes. These findings are equivocal for acute nonruptured appendicitis. Moderate right hydroureteronephrosis likely due to extrinsic compression by uterus. Electronically Signed: Orion Bain MD at 21:20 EST ,
[2023-04-29 20:39] VITALS: PULSE 94; RESP 16; TEMP 36.9; O2SAT 94
--- NOTE | 2023-04-30 00:04 | ED.RN ---
pt was sent to ob per request before the keflex order was in. called ob and they stated theynwere mcontacting the pts organizational psychologist and getting orders for a antibiotic and would take care of it down there. dr resendez was notified and ok with this plan
[2023-04-30 00:05] VITALS: BP 124/74
== END 2023-04-30 00:08 | disposition other institution (70) ==
PROVIDERS: Emergency Provider Emergency Medicine; Visit Provider Emergency Medicine
DX: O26.892 Other specified pregnancy related conditions, second trimester (principal); M54.9 Dorsalgia, unspecified; Z87.891 Personal history of nicotine dependence; R82.71 Bacteriuria; N13.30 Unspecified hydronephrosis; O26.832 Pregnancy related renal disease, second trimester; R10.9 Unspecified abdominal pain; Z3A.00 Weeks of gestation of pregnancy not specified; O99.891 Other specified diseases and conditions complicating pregnancy
CPT/HCPCS: 74177; A4216; J2405; J7030; Q9967

== ENCOUNTER 2023-07-04 04:15 | Inpatient (IN) | payer MEDICAID, SELFPAY ==
[2023-07-04] VITALS (25 sets, daily range): BP systolic 116–135; BP diastolic 60–79; PULSE 75–134; RESP 14–16; TEMP 36.8–37; O2SAT 97–100; BMI 23.5
[2023-07-04 04:30] LABS: Absolute Lymphocyte Count 3.18 X10^3/uL (0.83-4.51); Basophil# 0.05 X10^3/uL; Basophil% 0.3 % (0-1); Eosinophil# 0.13 X10^3/uL; Eosinophils% 0.8 % (0-5); Hematocrit 30.7 % (37-47); Hemoglobin 9.9 g/dL (12.0-15.0); Lymphocyte # 3.18 X10^3/ul (0.83-4.51); Lymphocyte % 18.4 % (19-41); Mean Corp Hgb Conc 32.2 g/dL (32-36); Mean Corpuscular Hgb 27.2 pg (27.0-32.0); Mean Corpuscular Volume 84.3 fL (81-99); Mean Platelet Vol. 10.5 fl (6.2-12.0); Monocyte# 0.78 X10^3/uL; Monocyte% 4.5 % (0-10); NRBC Flagged by Analyzer 0 % (0-5); Neutrophil # 13.04 X10^3/uL (2.7-7.7); Neutrophil % 75.6 % (47-70); Platelet Count 409 K/mm3 (150-450); RBC Distribution Width CV 13.5 % (11.6-14.6); RBC Distribution Width SD 42.2 fl (35.1-43.9); Red Blood Count 3.64 M/mm3 (4.2-5.4); White Blood Count 17.3 K/mm3 (4.4-11.0)
[2023-07-04] MEDS: Oxytocin 10 UNITS/ML Vial IM (04:39)
[2023-07-04] MEDS: Oxytocin 15 Units/NS 250ml 15 UNITS/250 ML IV.SOLN 83 UNITS IV (04:43)
[2023-07-04] MEDS: fentaNYL 100 MCG/2 ML Ampul IV (05:01)
[2023-07-04 05:10] LABS: Syphilis Antibodies Non-reactive
--- NOTE | 2023-07-04 05:20 | PCM.HP.OB ---
HPI - General General Date of Admission: 07/04/23 Date of Service: 07/04/23 Chief Complaint: Labor, ROM upon arrival HPI Narrative VADIM FRIEND, is a 22 F who presents with increasing contractions. Started at 9pm the night before. Intensity increased at 1 am. ROM at 4 am. Maternal Data Information Final ADELAIDA: 08/17/23 Gestational age: 33+5 Doctor Who Attended Delivery: Lilian Wallace [facility] Medical History Ulcerative colitis Home Medications vit no.95-ferrous fumarate 28 mg-folic acid 800 mcg tablet () 1 tab PO DAILY 04/29/23 [History Last Taken Unknown] Allergy/AdvReac Type Severity Reaction Status Date / Time No Known Allergies Allergy Verified 04/29/23 16:44 Social History Smoking Status: Former smoker History 1 Elective abortions Hx Para 0 Spontaneous abortions Hx # Term Pregnancies Ectopic pregnancies Hx # Pregnancies Multiple births # of living children ROS Constitutional Constitutional: Denies fatigue, fever(s) or malaise Eyes Eyes: Denies change in vision ENT HEENT: Denies dizziness or headache(s) Cardiovascular Cardiovascular: Denies chest pain, dyspnea or lightheadedness Respiratory/Chest Respiratory/Chest: Denies cough or dyspnea Gastrointestinal Gastrointestinal: Denies change in bowel habits Genitourinary Genitourinary: Denies burning urination or genital lesions Integumentary Integumentary: Denies rash Neurologic Neurologic: Denies confusion, dizziness, headache(s), numbness or weakness Vital Signs Vital Signs Vital Signs: 07/04/23 04:39 07/04/23 04:39 07/04/23 04:41 Pulse Rate 134 H Blood Pressure 135/63 H BP Systolic 135 BP Diastolic 63 Pulse Ox 100 07/04/23 04:41 07/04/23 04:56 07/04/23 04:56 Pulse Rate 85 86 Blood Pressure 131/60 H BP Systolic 131 BP Diastolic 60 Pulse Ox 07/04/23 05:11 07/04/23 05:11 Pulse Rate 86 Blood Pressure 125/67 H BP Systolic 125 BP Diastolic 67 Pulse Ox Weight Weight: 76.385 kg Body Mass Index (BMI) 23.5 Physical Exam Const alert and oriented x3 General Appearance: cooperative HEENT normocephalic Eyes PERRL Neck full ROM Resp normal respiratory effort Cardio regular rate GI soft to palpation and non-tender external exam normal and appearance of the vagina normal Extremity normal to inspection Skin no rashes or lesions noted Neuro moves all extremities Labs Labs Labs: Blood Type Pending Antibody Screen Pending Hct 30.7 % (37-47) L Hgb 9.9 g/dL (12.0-15.0) L Syphilis Total Ab Non-reactive Labs reviewed from printed neymar and normal RH+, GBS unknown Assessment & Plan (1) (spontaneous vaginal delivery): (2) delivery, delivered: (3) 33 weeks gestation of : PLAN: Plan Delivered
--- NOTE | 2023-07-04 05:26 | EX.PCM.OBRPT ---
Assessment & Plan (1) (spontaneous vaginal delivery): (2) delivery, delivered: (3) 33 weeks gestation of : Maternal Data Information Final ADELAIDA: 08/17/23 [place] Doctor Who Attended Delivery: Lilian Wallace Vaginal Delivery Maternal Presentation Maternal Presentation: Active Labor and Spontaneous Rupture of Membranes Operative Information Date of Procedure: 07/04/23 Pre-Operative Diagnosis: labor Post-Operative Diagnosis: same Surgery / Procedure Performed: Spontaneous Vaginal Delivery Type of Anesthesia: None Estimated Blood Loss: 150 cc Time of Delivery: 04:39 Findings Description of Procedure: Patient presented 8 cm and Membranes ruptured upon arrival. Clear fluid. Delivered over an intact perineum SONDRA. Cord against chest. Cried upon delivery. Cord clamped and cut. Cord gases collected. Placenta delivered spontaneously.No laceration repaired Presentation: Vertex and SODNRA Amniotic Membrane Rupture Type: Spontaneous Time of Membrane Rupture: 354 Amniotic Fluid Description: Clear Placental Delivery Description: Spontaneous Placenta Disposition: [facility] Specimen(s) Removed: cord gas Cord Vessel Description: 3 Vessels Cord Entanglement: None Cord Gases: VBG Infant A Gender: Male (1 minute): 9 (5 minute): 9 Delayed Cord Clamping: Yes Post Vaginal Delivery Medications Given After Delivery: IV Pitocin and IM Pitocin Episiotomy Description: None Laceration: None Complication Complications: None
[2023-07-04] MEDS: Acetaminophen 500 MG Tablet 1000 MG PO ×2 (06:06→14:27)
[2023-07-04 06:44] LABS: Amphetamine Urine VISTA NEGATIVE (<1000 ng/mL); Barbiturate Urine VISTA NEGATIVE (< 200 ng/mL); Benzodiazepine Urine VISTA NEGATIVE (< 200 ng/mL); Cocaine Urine VISTA NEGATIVE (< 300 ng/mL); Ecstacy Urine VISTA NEGATIVE (< 500 ng/mL); Methadone Urine VISTA NEGATIVE (< 300 ng/mL); PCP Urine VISTA NEGATIVE (< 25 ng/mL); THC Urine VISTA NEGATIVE (< 50 ng/mL); Vista UDS pH Range 6
[2023-07-05] VITALS: BP 117/66; PULSE 80; RESP 16; TEMP 36.8; O2SAT 97
[2023-07-05] MEDS: Acetaminophen 500 MG Tablet 1000 MG PO (01:12)
[2023-07-05 03:20] VITALS: BP 116/60; PULSE 68; RESP 14; O2SAT 97
[2023-07-05 07:30] VITALS: BP 118/73; PULSE 70; RESP 16; TEMP 37; O2SAT 99
--- NOTE | 2023-07-05 07:49 | PCM.PROGNOTE ---
Subjective Subjective patient seen at bedside, doing well. Patient reports good pain control. lochia mild. Objective Data Objective Data Vital Signs: Vital Signs Temp Pulse Resp BP Pulse Ox O2 Del Method 98.2 F 68 14 116/60 97 Room Air 07/05/23 00:00 07/05/23 03:20 07/05/23 03:20 07/05/23 03:20 07/05/23 03:20 07/05/23 03:20 Oxygen Delivery Method Room Air Weight: 76.385 kg Body Mass Index (BMI) 23.5 Intake & Output: Intake and Output for Last 24 Hours 07/03/23 07/04/23 07/05/23 23:59 23:59 23:59 Intake Total 250 / 250 Output Total 850 / 850 Balance -600 / -600 Lab / Micro Data 07/04/23 04:15 Physical Exam Narrative fundus firm Const alert and oriented x3 General Appearance: cooperative HEENT normocephalic Neck General: normal visual inspection GI soft to palpation and non-distended GI Narrative: Fundus firm Extremity normal to inspection and no calf tenderness Skin no rashes or lesions noted Neuro oriented x3 and CN's II-XII intact bilaterally Psych mental status grossly normal Assessment & Plan Assessment/Plan (1) delivery, delivered: (2) (spontaneous vaginal delivery): PLAN: Plan PPD# 1 , Doing well Routine care pain mgmt ambulation dc to hotel time spent with patient face to face on day of discharge was <30min
--- NOTE | 2023-07-05 07:52 | DCINST_ITS ---
Discharge Instructions Diet Discharge Diet: No restrictions Activity May resume sexual activity in: 6-8 weeks Dressing / Incision Call your doctor if you observe: Fever of 101 or Higher, Inability to urinate, Using more than 1 pad per hour and Uncontrolled pain Follow Up Care Please Follow Up With: Stephie Egan MD When: 1-2 weeks post and again at 6 weeks post . [phone] Test Results: Test results from this visit will be discussed in further detail at your follow- up appointment, if applicable. Discharge Plan Admission Admit Date/Time: 07/04/23 04:15 Attending Provider: Princess Calhoun Primary Care Provider: Care Physician,Divina Primary Discharge Orders/Prescriptions Prescriptions: New acetaminophen 500 mg Tablet 1,000 mg PO Q6H PRN PRN (Reason: Pain 1-10 Or Fever) Qty: 0 0RF Continued PNV cmb#95-ferrous fumarate-FA [] 28 mg iron- 800 mcg tablet 1 tab PO DAILY Entyvio 300 mg recon soln IV Referrals / Follow Up: Care Physician,No Primary [Primary Care Provider] - Disposition Disposition (needs filled in before D/C Order can be placed): Home, Self Care
--- NOTE | 2023-07-19 13:17 | CASEMGMT ---
Social Work Assessment Labor and Delivery Unit [address] [facility] [place] [address] Phone number: [phone] Date of Referral: 07/04/23 Time of Referral:? 603 Referred By: Lilian Wallace Date of Intervention: ??07/18/23 Time of Intervention:?1500 Reason for Referral:? first baby for mother, buzz, unexpected SCN Sw completed chart review and acknowledges social work consult. Sw had attempted several times to meet with MOB throughout admission and baby admission to [facility]. Sw met with mother of baby (YUNIOR Acevedo) and explained sw role. Sw provided literature for MOB to review and list of firsthealth resources availabel to MOB. History obtained from: medical records, MOB Household composition: MOB states that residing in the family home at this time is MOB, father of baby (JUSTA- Jorge), Jorge's 7 year old son and now baby. MOB denies any issues or concerns regarding housing at this time. Patient's parent/guardian status:? ?MOB states that she and JUSTA have been together for several years now, no concerns reported domestic violence or intimate partner violence. Medical History: ?JACKSON is 22 year old female who is 1, para 0- now 1 following labor and delivery of . JACKSON received routine care with [facility] during . JACKSON delivered baby via vaginal delivery on 07/04/23 at 33 weeks gestation. Baby boy, named Christine Sam, was born weighing 5lb 2oz and his apgars were 9 and 9 at one and five minutes of life, respectfully. MOB states that baby will be followed by Dr. Sanchez for pediatrics. Educational Status:? MOB states that both parents graduated from high school, no reported concerns of reading, learning or comprehension. Financial Status: JUSTA is gainfully employed outside of the home as a bateman. 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 Supplies:?? MOB states that she has obtained all necessary baby supplies, including: car seat, safe sleep space, clothes, diapers and wipes. Baby is formula feed, MOB states that she has all needed feeding supplies. Childcare/Caregiver(s):? MOB states that if they need assistance with childcare they have several family members that will be able to assist. Transportation:?? No barriers. Programs/Agencies Involved: ???JACKSON is receiving [employer] insurance through [employer]. MOB states that she is also connected to [facility] and has an appointment scheduled with them for early July. Children Services/Legal Issues:??No history of involvement, no issues or concerns warranting referral to be made at this time. ? Behavioral Health Issues: ??Mental Health History:?JACKSON denies mental health diagnoses for herself of FOB. MOB states that she has felt good following delivery and does not feel as though she has struggled with any anxiety or depression. ?? Substance Use History:?MOB denies substance use prior to or during . ? Family History: MOB denies family history of addiction/ substance use or significant mental health diagnoses. ? Drug Screens: ??No drug screens observed in chart review. Family/Social Stressors:? JACKSON does not express any issues or concerns at this time. MOB states that she is eager for baby to be ready for discharge. Support Systems: MOB states that they have a lot of family who is supportive. Depression/Shaken Baby/Safe Sleeping:? Sw educated MOB on signs and symptoms of baby blues and depression and anxiety. MOB expressed understanding. Sw educated MOB on shaken baby prevention and ABCs of safe sleep. MOB expressed understanding. ASSESSMENT:? JACKSON has been discharged following labor and delivery of . [place] baby boy required admission to [facility] due to prematurity, and is now ready for dc. JACKSON has obtained all necessary baby supplies and has asked appropriate questions regarding resources that are available to her at this time. MOB states that she does not feel as though her mental health has been impacted since delivering baby, and is aware of signs and symptoms to be on the lookout for. MOB states that if she were to struggle, FOB would be able to recognize that and would know how to help an support her. MOB was talkative and receptive to sw involvement and support. ? PLAN:Baby has made progress towards medical goals identified and is ready for discharge. ?No other services requested or indicated. Erna Tello, CYLINDER INSPECTOR, BLOCK OUT MACHINE OPERATOR
== END 2023-07-05 10:45 | disposition home or self-care (01) | DRG 560 ==
LOC: WPOUT 04:29 → WP 04:29
PROVIDERS: Admitting Provider Obstetrics & Gynecology; Visit Provider Obstetrics & Gynecology
DX: O60.14X0 Preterm labor third trimester with preterm delivery third trimester, not applicable or unspecified (principal); Z37.0 Single live birth; Z3A.33 33 weeks gestation of pregnancy; Z87.891 Personal history of nicotine dependence
CPT/HCPCS: 59025; 59050; 80307; 85025; 86780; 86850; 86900; 86901; 99221; G0378

== ENCOUNTER 2024-01-27 06:51 | Emergency (ER) | payer MEDICAID, SELFPAY ==
[2024-01-27 06:51] VITALS: BP 111/61; PULSE 79; RESP 16; TEMP 36.7; O2SAT 100; BMI 20.3
--- NOTE | 2024-01-27 07:23 | EX.ED.DYSGE1 ---
HPI History of Present Illness Chief Complaint: Dizziness Informant: patient Narrative Narrative: 23-year-old female presenting with 1 week of intermittent lightheadedness with standing. She has had no syncope. She states usually if she continues to stand with this, she closes her eyes and it eventually passes. If she sits down the passes quicker. She has had nausea with this at times but no vomiting no abdominal pain and no recent diarrhea or blood in her stools, which she has had with ulcerative colitis flareups in the past but she is currently on Stelara and it is keeping her well-controlled and she has not had any symptoms. She denies any spinning or motion/vertiginous symptoms. No tinnitus or earache. No vision changes or focal neurologic symptoms. No chest symptoms and trouble urinating. When asked if she could be dehydrated, she states yes, she does not drink a lot of water just coffee in the mornings pretty much. [facility] Medical History Ulcerative colitis Home Medications ?Medication ?Instructions ?Recorded ?Last Taken ?Type ustekinumab 90 mg/mL subcutaneous 90 mg subcut Q60D 01/27/24 Unknown History syringe (Stelara) Allergy/AdvReac Type Severity Reaction Status Date / Time No Known Allergies Allergy Verified 01/27/24 06:51 Social History Smoking Status: Current every day smoker tobacco type: e-cigarettes ROS ROS ED Constitutional Constitutional ED: Denies chills or fever(s) Eyes Eyes: Denies change in vision or diplopia ENT ENT ED: Denies rhinorrhea or sore throat Cardiovascular Cardiovascular: Reports lightheadedness; Denies chest pain, palpitations, pedal edema, rapid heart rate or syncope Respiratory/Chest Respiratory/Chest: Denies cough or dyspnea Gastrointestinal Gastrointestinal: Reports nausea; Denies abdominal pain, diarrhea or vomiting Genitourinary Genitourinary ED: Denies dysuria or hematuria Musculoskeletal Musculoskeletal: Denies back pain or neck pain Integumentary Denies abscess or rash Neurologic Neurologic: Denies headache(s), paresthesias or weakness Psychiatric Psychiatric: Denies anxiety or suicidal thoughts EXAM Physical Exam Const Vital Signs: 01/27/24 06:51 01/27/24 08:29 Temperature 98.1 F Temperature Source Oral Pulse Rate 79 Pulse Rate [Lying] 66 Pulse Rate [Sitting (for 1 minute prior to obtaining)] 80 Pulse Rate [Standing (for 1 minute prior to obtaining)] 77 Respiratory Rate 16 Blood Pressure 111/61 Blood Pressure [Lying] 105/67 Blood Pressure [Sitting (for 1 minute prior to obtaining)] 98/64 Blood Pressure [Standing (for 1 minute prior to obtaining)] 103/66 Blood Pressure Mean 77 Blood Pressure Mean [Lying] 79 Blood Pressure Mean [Sitting (for 1 minute prior to obtaining)] 75 Blood Pressure Mean [Standing (for 1 minute prior to obtaining)] 78 Pulse Ox 100 Positive well nourished and well developed Constitutional Narrative: well-appearing General Appearance ED: well developed and NAD HEENT Reports moist mucous membranes normocephalic and atraumatic Eyes PERRL and EOMs intact bilaterally Neck full ROM and supple Resp normal respiratory effort and clear to auscultation bilaterally Cardio regular rate, regular rhythm and no murmurs Rate: Negative for tachycardic GI non-tender and non-distended Auscultation: normoactive bowel sounds Palpation: soft Back/Spine no CVA tenderness General Back: other FROM Extremity normal to inspection General Extremety ED: Negative for edema, pulses abnormal or tenderness General Extremity: Negative for edema or pulses abnormal Neuro oriented x3, CN's II-XII intact bilaterally and no sensory deficits noted Sensorium / Orientation: awake and alert Motor Exam: strength 5/5 throughout Skin no rashes or lesions noted and no wounds MDM MDM MDM Narrative Medical decision making narrative: Patient was given a liter of IV fluids, she did feel better and then we did orthostatics and they were negative, she states she did not feel dizzy when she sat up this time after the fluids. Her blood tests are noted, she is anemic but her hemoglobin at 10.7 is higher than it had been in the past and is not likely the cause of this. It is microcytic. She was advised to follow-up with her doctor, she may need to get iron studies to see if she is iron deficient, I do not think that she is likely to be anemic from the minor blood loss she has had from ulcerative colitis flares in the past certainly she does not have one now. I think all of this was prerenal, her BUN: Creatinine was borderline. negative ruling out ectopic. She is encouraged to drink more fluids and follow-up with her doctor she is comfortable with that plan. Lab Data Attestation: I reviewed the patient's lab results. Labs: Laboratory Results - last 24 hr 01/27/24 07:33 WBC 5.1 RBC 4.51 Hgb 10.7 L Hct 36.1 L MCV 80.0 L MCH 23.7 L MCHC 29.6 L RDW Std Deviation 42.6 RDW Coeff of Julito 14.6 Plt Count 363 MPV 10.0 Immature Gran % (Auto) 0.400 Neut % (Auto) 52.9 Lymph % (Auto) 32.9 Taliaferro % (Auto) 7.9 Eos % (Auto) 5.1 H Baso % (Auto) 0.8 Absolute Neuts (auto) 2.7 Absolute Lymphs (auto) 1.67 Nucleated RBC % 0 Sodium 138 Potassium 3.5 Chloride 108 H Carbon Dioxide 26.0 Anion Gap 5 BUN 13 Creatinine 0.88 Estim Creat Clear Calc 103.91 Est GFR (MDRD) Af Amer 102 Est GFR (MDRD) Non-Af 84 BUN/Creatinine Ratio 14.7 Glucose 97 Calcium 9.0 Serum , Qual NEGATIVE Discharge Plan Triage Chief Complaint: Dizziness ED Provider: Jose Young Dx/Rx/DC Orders Clinical Impression: Mild dehydration, Orthostasis, Microcytic hypochromic anemia Instructions: Dehydration Prescriptions: No Action Stelara 90 mg/mL syringe 90 mg subcut Q60D Primary Care Provider: Care Physician,No Primary Referrals: Lani Boyce, [Med Staff - Active Staff] - (if you need primary doctor) Doctor,Your [Non-Staff] - (follow up regarding your anemia) Print Language: Moroccan Disposition Disposition: Home, Self Care
[2024-01-27] MEDS: 0.9% Normal Saline (1000mL) 1,000 ML 999 ML IV (07:34)
[2024-01-27 07:40] LABS: Absolute Lymphocyte Count 1.67 X10^3/uL (0.83-4.51); Absolute Neutrophil Count 2.7 X10^3/uL (2.0-7.7); Basophil# 0.04 X10^3/uL; Basophil% 0.8 % (0-1); Eosinophil# 0.26 X10^3/uL; Eosinophils% 5.1 % (0-5); Hematocrit 36.1 % (37-47); Hemoglobin 10.7 g/dL (12.0-15.0); Lymphocyte # 1.67 X10^3/ul (0.83-4.51); Lymphocyte % 32.9 % (19-41); Mean Corp Hgb Conc 29.6 g/dL (32-36); Mean Corpuscular Hgb 23.7 pg (27.0-32.0); Monocyte% 7.9 % (0-10); NRBC Flagged by Analyzer 0 % (0-5); Neutrophil # 2.69 X10^3/uL (2.7-7.7); Neutrophil % 52.9 % (47-70); Platelet Count 363 K/mm3 (150-450); RBC Distribution Width CV 14.6 % (11.6-14.6); RBC Distribution Width SD 42.6 fl (35.1-43.9); Red Blood Count 4.51 M/mm3 (4.2-5.4); White Blood Count 5.1 K/mm3 (4.4-11.0)
[2024-01-27 08:00] LABS: Internal QC Validated? YES +Cl - CLEAR BKGD; Pregnancy, Serum, hCG Quali. NEGATIVE Negative
[2024-01-27 08:02] LABS: Anion Gap 5 (5-15); BUN 13 mg/dL (7-18); BUN/Creat Ratio 14.7 RATIO (10-20); Chloride 108 mmol/L (98-107); Creatinine, Serum 0.88 mg/dL (0.55-1.02); EST Glomerular Filtration Rate 84 mL/min (>60); Est Glom Filt Rate - Afr Amer 102 mL/min (>60); Estimated Creatinine Clearance 103.91 ml/min; Glucose 97 mg/dL (74-106); Potassium 3.5 mmol/L (3.5-5.1); Sodium Level 138 mmol/L (136-145)
[2024-01-27 08:29] VITALS: BP 103/66; BP 105/67; BP 98/64; PULSE 66; PULSE 77; PULSE 80
[2024-01-27 09:00] VITALS: BP 100/63; BP 104/63; PULSE 70; PULSE 88; RESP 14; RESP 16; TEMP 36.6; O2SAT 100; O2SAT 99
== END 2024-01-27 09:05 | disposition home or self-care (01) ==
PROVIDERS: Emergency Provider Emergency Medicine; Visit Provider Emergency Medicine
DX: D50.9 Iron deficiency anemia, unspecified (principal); E86.0 Dehydration; F17.210 Nicotine dependence, cigarettes, uncomplicated; R42 Dizziness and giddiness; I95.1 Orthostatic hypotension
CPT/HCPCS: 80048; 84703; 85025; 96360; 96361; 99284; J7030; A4216